=== PATIENT | male | born 2000 | race Caucasian/White ===

== ENCOUNTER 2019-05-01 11:33 | Emergency (ER) | payer BC ==
[~2019-05-01] VITALS: Ht 167.6 cm; Wt 61.2 kg
[2019-05-01] MEDS ORDERED: VOLTAREN-XR100 MG PO (16:35)
[2019-05-01] MEDS ORDERED: SKELAXIN800 MG PO (16:35)
== END 2019-05-01 16:48 | disposition home or self-care (01) ==
LOC: ER 11:33
DX: S01.81XA Laceration without foreign body of other part of head, initial encounter (principal); S71.112A Laceration without foreign body, left thigh, initial encounter; S13.8XXA Sprain of joints and ligaments of other parts of neck, initial encounter; F10.129 Alcohol abuse with intoxication, unspecified; W18.09XA Striking against other object with subsequent fall, initial encounter; E86.0 Dehydration; Y93.89 Activity, other specified; Y92.018 Other place in single-family (private) house as the place of occurrence of the external cause; Y99.8 Other external cause status